=== PATIENT | male | born 2000 | race Caucasian/White ===

== ENCOUNTER 2023-01-23 17:11 | Emergency (ER) | payer OTHER ==
[2023-01-23 17:38] VITALS: BP 139/88; PULSE 115
[2023-01-23] MEDS: LORazepam 0.5 MG Tab PO ONE (17:47)
== END 2023-01-23 18:22 | disposition home or self-care (01) ==
LOC: KA.ED 17:11
DX: F41.0 Panic disorder [episodic paroxysmal anxiety] (principal); Z88.0 Allergy status to penicillin
CPT/HCPCS: 99283; 99284; A9270-GY